=== PATIENT | male | born 1970 | race African-American/Black ===

== ENCOUNTER 2018-02-19 11:07 | Inpatient (IN) | payer OTHER ==
[2018-02-19 11:19] VITALS: BMI 27.3
--- NOTE | 2018-02-19 11:54 | HP ---
COWS - Scale Resting Pulse: 0= [place] 80 or Below Sweatin= Chills/Flushing Restless Observation: 3= Extraneous Movement Pupil Size: 1= Pupils >than Normal Bone or Joint Aches: 2= Severe Diffuse Aches Runny Nose/ Eye Tearin= Runny Nose/Eyes GI Upset > 30mins: 2= Nausea/Diarrhea Tremor Observation: 2= Slight Tremor Visible Yawning Observation: 2= >3x During Session Anxiety or Irritability: 2=Irritable/Anxious Goose Flesh Skin: 0=Smooth Skin COWS Score: 17 CIWA Score - CIWA Score Nausea/Vomitin Muscle Tremors: 3 Anxiety: 3 Agitation: 2 Paroxysmal Sweats: 1-Minimal Palms Moist Orientation: 0-Oriented Tacttile Disturbances: 1-Very Mild Itch/Numbness Auditory Disturbances: 1-Very Mild Visual Disturbances: 1-Very Mild Sensitivity Headache: 2-Mild CIWA-Ar Total Score: 16 Admission ROS BHS - HPI Chief Complaint: i need help to stop using heroin and alcohol Allergies/Adverse Reactions: Allergies Allergy/AdvReac Type Severity Reaction Status Date / Time No Known Allergies Allergy Verified 02/19/18 11:46 History of Present Illness: this 47 years old male with heroin,alcohol dependence,seeking detox,withdrawal symptom,last detox [facility] 12/02 completed insomnia nicotine dependence history of surgery of right thumb in 1993 longest period of sobriety 10 months - Ebola screening Have you traveled outside of the country in the last 21 days: No Have you had contact with anyone from an Ebola affected area: No Have you been sick,other than usual withdrawal symptoms: No Do you have a fever: No - Review of Systems Constitutional: Chills, Loss of Appetite, Malaise, Night Sweats, Changes in sleep, Weakness EENT: reports: Tearing, Nose Congestion Respiratory: reports: No Symptoms reported Cardiac: reports: No Symptoms Reported GI: reports: Diarrhea, Nausea, Abdominal cramping : reports: No Symptoms Reported Musculoskeletal: reports: Back Pain, Joint Pain, Muscle Pain, Joint Stiffness Integumentary: reports: Dryness Neuro: reports: Headache, Tremors Endocrine: reports: No Symptoms Reported Hematology: reports: No Symptoms Reported Psychiatric: reports: No Sypmtoms Reported, Judgement Intact, Mood/Affect Appropiate, Orientated x3 Patient History - Patient Medical History Hx Anemia: No Hx Asthma: No Hx Chronic Obstructive Pulmonary Disease (COPD): No Hx Cancer: No Hx Cardiac Disorders: No Hx Congestive Heart Failure: No Hx Hypertension: No Hx Hypercholesterolemia: No Hx Pacemaker: No HX Cerebrovascular Accident: No Hx Seizures: No Hx Dementia: No Hx Diabetes: No Hx Gastrointestinal Disorders: No Hx Liver Disease: No Hx Genitourinary Disorders: No Hx Sexually Transmitted Disorders: No Hx Renal Disease (ESRD): No Hx Thyroid Disease: No Hx Human Immunodeficiency Virus (HIV): No (last 2017 negative) Hx Hepatitis C: No Hx Depression: No Hx Suicide Attempt: No Hx Bipolar Disorder: No Hx Schizophrenia: No Other Medical History: no suicidal,no homicidal - Patient Surgical History Past Surgical History: Yes Hx Neurologic Surgery: No Hx Cataract Extraction: No Hx Cardiac Surgery: No Hx Lung Surgery: No Hx Breast Surgery: No Hx Breast Biopsy: No Hx Abdominal Surgery: No Hx Appendectomy: No Hx Cholecystectomy: No Hx Genitourinary Surgery: No Hx Section: No Hx Orthopedic Surgery: Yes (Fx left foot sx R thumb sx) Other Surgical History: fx left foot Anesthesia Reaction: No - PPD History Previous Implant?: Yes Documented Results: Negative w/o proof Implanted On Prior [facility] Admission?: Yes Date: 02/11/15 PPD to be Administered?: Yes - Smoking Cessation Smoking history: Current every day smoker Have you smoked in the past 12 months: Yes Aproximately how many cigarettes per day: 10 Hx Chewing Tobacco Use: No Initiated information on smoking cessation: Yes 'Breaking Loose' booklet given: 02/19/18 - Substance & Tx. History Hx Alcohol Use: Yes Hx Substance Use: Yes Substance Use Type: Alcohol, Heroin Hx Substance Use Treatment: Yes ([facility] 12/02) - Substances Abused Heroin Route: Inhalation Frequency: Daily Amount used: 6-7 BAGS Age of first use: 19 Date of Last Use: 02/18/18 Alcohol Route: Oral Frequency: Daily Amount used: 1/2 PINT OF WHISKY Age of first use: 14 Date of Last Use: 02/18/18 Family Disease History - Family Disease History Family Disease History: Diabetes: Mother (BREAST), CA: Mother, Other: Father ( ALCOHOLIC) Admission Physical Exam BHS - Vital Signs Vital Signs: Vital Signs - 24 hr 02/19/18 11:15 Temperature 97 F L Pulse Rate 55 L Respiratory 18 Rate Blood Pressure 131/79 - Physical General Appearance: Yes: Moderate Distress, Tremorous, Irritable, Sweating, Anxious HEENTM: Yes: Normal ENT Inspection, JENNIFER, Pharynx Normal Respiratory: Yes: Lungs Clear, Normal Breath Sounds, No Respiratory Distress Neck: Yes: Within Normal Limits, Supple, Trachea in good position Breast: Yes: Within Normal Limits Cardiology: Yes: Within Normal Limits, Regular Rhythm, Regular Rate, S1, S2 Abdominal: Yes: Within Normal Limits, Normal Bowel Sounds, Non Tender, Soft Genitourinary: Yes: Within Normal Limits Back: Yes: Muscle Spasm Extremities: Yes: Tremors, Other (scar of right thumb) Neurological: Yes: biological engineer II-XII NML intact, Fully Oriented, Alert, Motor Strength 5/5 Integumentary: Yes: Dry Lymphatic: Yes: Within Normal Limits - Diagnostic (1) Opioid dependence with withdrawal Current Visit: Yes Status: Acute (2) Alcohol dependence with uncomplicated withdrawal Current Visit: Yes Status: Chronic (3) Nicotine dependence Current Visit: No Status: Chronic Qualifiers: Nicotine product type: cigarettes Substance use status: uncomplicated Qualified Code(s): F17.210 - Nicotine dependence, cigarettes, uncomplicated (4) Dehydration Current Visit: Yes Status: Acute (5) Nicotine dependence Current Visit: Yes Status: Acute Qualifiers: Nicotine product type: cigarettes Cleared for Admission [facility] - Detox or Rehab [facility] Level of Care: Medically Managed Detox Regimen/Protocol: Methadone/Librium [facility] Breath Alcohol Content Breath Alcohol Content: 0 Urine Drug Screen - Results Drug Screen Negative: No Urine Drug Screen Results: OPI-Opiates, BZO-Benzodiazepines
[2018-02-19] MEDS ORDERED: MAGNESIUM CITRATE 300 ML BOTTLE PO PRN (12:02)
[2018-02-19] MEDS ORDERED: chlordiazePOXIDE HCL 25 MG CAPSULE PO PRN (12:02)
[2018-02-19] MEDS ORDERED: IBUPROFEN 400 MG TABLET (FP) PO PRN (12:02)
[2018-02-19] MEDS ORDERED: LOPERAMIDE HCL 2 MG CAPSULE PO PRN (12:02)
[2018-02-19] MEDS ORDERED: MAG HYDROX/AL HYDROX/SIMETH 30 ML UNIT-DOSE CUP PO PRN (12:02)
[2018-02-19] MEDS ORDERED: P-EPHED 60MG/TRIPROLIDI 2.5MG TABLET PO PRN (12:02)
[2018-02-19] MEDS ORDERED: ACETAMINOPHEN 325 MG TABLET (FP) PO PRN (12:02)
[2018-02-19] MEDS ORDERED: MENTHOL/PHENOL 1 EACH UD MM PRN (12:02)
[2018-02-19] MEDS ORDERED: MAGNESIUM HYDROX 2400MG/30ML ORAL SUSPENSION 30 ML CUP PO PRN (12:02)
[2018-02-19] MEDS ORDERED: guaiFENesin/D-METHORPHAN HB 10 ML UNIT-DOSE CUPS PO PRN (12:02)
[2018-02-19] MEDS ORDERED: hydrOXYzine PAMOATE 25 MG CAPSULE (FP) PO PRN (12:02)
[2018-02-19] MEDS ORDERED: METHADONE HCL 10 MG TABLET (FOR DETOX USE ONLY) PO ONE ×2 (12:30→23:00)
[2018-02-19] MEDS: NICOTINE 21 MG/24 HOURS TOPICAL PATCH TD SCH (14:44)
[2018-02-19] MEDS: chlordiazePOXIDE HCL 25 MG CAPSULE PO SCH ×2 (16:46→22:05)
[2018-02-19] MEDS: THIAMINE HCL 100 MG TABLET (FP) PO SCH (22:04)
[2018-02-19] MEDS: MELATONIN 5 MG TABLETS PO PRN (22:05)
[2018-02-20] MEDS: chlordiazePOXIDE HCL 25 MG CAPSULE PO SCH ×4 (05:17→22:16)
[2018-02-20] MEDS ORDERED: METHADONE HCL 10 MG TABLET (FOR DETOX USE ONLY) PO SCH (10:00)
[2018-02-20 10:12] LABS: HEMATOCRIT 39.9 % (35.4-49); HEMOGLOBIN 12.9 GM/dL (11.7-16.9); MCHC 32.4 g/dl (32.0-35.9); MEAN CELL VOLUME 92.5 fl (80-96); MEAN PLT VOLUME 9.7 fl (7.5-11.1); PLATELET COUNT 205 K/MM3 (134-434); RBC 4.32 M/mm3 (4.00-5.60); RDW 13.8 % (11.9-15.9); WHITE BLOOD COUNT 3.9 K/mm3 (4.0-10.0)
[2018-02-20] MEDS: PRENATAL VITAMINS W/ FOLIC ACID TABLET (FP) PO SCH (10:12)
[2018-02-20 11:10] LABS: ALBUMIN 3.7 g/dl (3.4-5.0); ALK PHOS 71 U/L (45-117); ANION GAP 5 MMOL/L (8-16); BILIRUBIN,TOTAL 0.4 mg/dL (0.2-1); BLOOD UREA NITROGEN 13 mg/dL (7-18); CALCIUM 8.8 mg/dL (8.5-10.1); CHLORIDE 106 mmol/L (98-107); CO2 31 mmol/L (21-32); CREATININE 1.1 mg/dL (0.55-1.3); GLUCOSE,RANDOM 102 mg/dL (74-106); POTASSIUM 4.2 mmol/L (3.5-5.1); SGOT/AST 26 U/L (15-37); SGPT/ALT 38 U/L (13-61); SODIUM 142 mmol/L (136-145); TOT PROT 7.2 g/dl (6.4-8.2)
[2018-02-20] MEDS: NICOTINE 21 MG/24 HOURS TOPICAL PATCH TD SCH (11:50)
--- NOTE | 2018-02-20 15:10 | PN ---
[facility] CIWA - CIWA Score Nausea/Vomitin-Mild Nausea/No Vomiting Muscle Tremors: 2 Anxiety: 2 Agitation: 2 Paroxysmal Sweats: 2 Orientation: 0-Oriented Tacttile Disturbances: 1-Very Mild Itch/Numbness Auditory Disturbances: 0-None Visual Disturbances: 0-None Headache: 1-Very Mild CIWA-Ar Total Score: 11 S COWS - Scale Resting Pulse: 0= [place] 80 or Below Sweatin= Chills/Flushing Restless Observation: 1= Difficult to Sit Still Pupil Size: 0= Normal to Room Light Bone or Joint Aches: 1= Mild Discomfort Runny Nose/ Eye Tearin= Runny Nose/Eyes GI Upset > 30mins: 2= Nausea/Diarrhea Tremor Observation of Outstretched Hands: 1= Tremor Wilsey, Not Seen Yawning Observation: 1= 1-2x During Session Anxiety or Irritability: 2=Irritable/Anxious Goose Flesh Skin: 0=Smooth Skin COWS Score: 11 [facility] Progress Note (SOAP) Subjective: fatigue, chills, interrupted sleep Objective: 02/20/18 15:09 Vital Signs Temperature 97.5 F L 02/20/18 13:34 Pulse Rate 50 L 02/20/18 13:34 Respiratory Rate 18 02/20/18 13:34 Blood Pressure 130/76 02/20/18 13:34 O2 Sat by Pulse Oximetry (%) Laboratory Last Values WBC 3.9 K/mm3 (4.0-10.0) L 02/20/18 06:00 RBC 4.32 M/mm3 (4.00-5.60) 02/20/18 06:00 Hgb 12.9 GM/dL (11.7-16.9) 02/20/18 06:00 Hct 39.9 % (35.4-49) 02/20/18 06:00 MCV 92.5 fl (80-96) 02/20/18 06:00 MCH 30.0 pg (25.7-33.7) 02/20/18 06:00 MCHC 32.4 g/dl (32.0-35.9) 02/20/18 06:00 RDW 13.8 % (11.9-15.9) 02/20/18 06:00 Plt Count 205 K/MM3 (134-434) 02/20/18 06:00 MPV 9.7 fl (7.5-11.1) 02/20/18 06:00 Sodium 142 mmol/L (136-145) 02/20/18 06:00 Potassium 4.2 mmol/L (3.5-5.1) 02/20/18 06:00 Chloride 106 mmol/L (98-107) 02/20/18 06:00 Carbon Dioxide 31 mmol/L (21-32) 02/20/18 06:00 Anion Gap 5 MMOL/L (8-16) L 02/20/18 06:00 BUN 13 mg/dL (7-18) 02/20/18 06:00 Creatinine 1.1 mg/dL (0.55-1.3) 02/20/18 06:00 Creat Clearance w eGFR > 60 (>60) 02/20/18 06:00 Random Glucose 102 mg/dL (74-106) 02/20/18 06:00 Calcium 8.8 mg/dL (8.5-10.1) 02/20/18 06:00 Total Bilirubin 0.4 mg/dL (0.2-1) 02/20/18 06:00 AST 26 U/L (15-37) 02/20/18 06:00 ALT 38 U/L (13-61) 02/20/18 06:00 Alkaline Phosphatase 71 U/L (45-117) 02/20/18 06:00 Total Protein 7.2 g/dl (6.4-8.2) 02/20/18 06:00 Albumin 3.7 g/dl (3.4-5.0) 02/20/18 06:00 RPR Titer Nonreactive (NONREACTIVE) 02/20/18 06:00 Assessment: 02/20/18 15:11 withdrawal sx Plan: continue detox increase fluids continue to monitor
--- NOTE | 2018-02-20 17:31 | EKG ---
Test Reason : Blood Pressure : / mmHG Vent. Rate : 044 BPM Atrial Rate : 044 BPM P-R Int : 144 ms QRS Dur : 086 ms QT Int : 444 ms P-R-T Axes : 042 054 033 degrees QTc Int : 379 ms MARKED SINUS BRADYCARDIA ABNORMAL ECG NO PREVIOUS ECGS AVAILABLE CLINICAL CORRELATION IS RECOMMENDED Confirmed by DONNY RAMOS, BRIGHT ([id number]) on 02/20/2018 5:30:44 PM Referred By: Confirmed By:BRIGHT HINES MD
[2018-02-20 20:46] LABS: URINE APPEARANCE CLEAR; URINE BILIRUBIN NEGATIVE (<2.0 mg/dL); URINE COLOR STRAW; URINE GLUCOSE (UA) NEGATIVE (NEGATIVE); URINE KETONE NEGATIVE (NEGATIVE); URINE LEUK ESTERASE NEGATIVE (NEGATIVE); URINE NITRITE NEGATIVE (NEGATIVE); URINE PROTEIN NEGATIVE (NEGATIVE); URINE UROBILINOGEN NEGATIVE mg/dL (0.2-1.0)
[2018-02-20] MEDS: THIAMINE HCL 100 MG TABLET (FP) PO SCH (22:15)
[2018-02-20] MEDS: MELATONIN 5 MG TABLETS PO PRN (22:16)
[2018-02-21] MEDS: chlordiazePOXIDE HCL 25 MG CAPSULE PO SCH ×2 (06:25→10:05)
[2018-02-21] MEDS: NICOTINE 21 MG/24 HOURS TOPICAL PATCH TD SCH (10:05)
[2018-02-21] MEDS: METHADONE HCL 5 MG TABLET (FOR DETOX USE ONLY) PO SCH (10:05)
[2018-02-21] MEDS: PRENATAL VITAMINS W/ FOLIC ACID TABLET (FP) PO SCH (10:05)
--- NOTE | 2018-02-21 12:35 | PN ---
S CIWA - CIWA Score Nausea/Vomitin Muscle Tremors: 2 Anxiety: 2 Agitation: 2 Paroxysmal Sweats: 2 Orientation: 0-Oriented Tacttile Disturbances: 2-Mild Itch/Numbness/Burn Auditory Disturbances: 0-None Visual Disturbances: 2-Mild Sensitivity Headache: 1-Very Mild CIWA-Ar Total Score: 15 [facility] COWS - Scale Resting Pulse: 0= [place] 80 or Below Sweatin=Flushed/Facial Moisture Restless Observation: 1= Difficult to Sit Still Pupil Size: 1= Pupils >than Normal Bone or Joint Aches: 2= Severe Diffuse Aches Runny Nose/ Eye Tearin= Nasal Congestion GI Upset > 30mins: 1= Stomach Cramp Tremor Observation of Outstretched Hands: 2= Slight Tremor Visible Yawning Observation: 0= None Anxiety or Irritability: 1=Feels Anxious/Irritable Goose Flesh Skin: 0=Smooth Skin COWS Score: 11 S Progress Note (SOAP) Subjective: Interrupted sleep, muscle aches, malaise and abdominal cramps Objective: 02/21/18 12:34 Vital Signs - 8 hr 02/21/18 02/21/18 06:40 09:24 Temperature 97.2 F L 97.5 F L Pulse Rate 43 L 51 L Respiratory 18 18 Rate Blood Pressure 100/57 L 126/83 Laboratory Last Values WBC 3.9 K/mm3 (4.0-10.0) L 02/20/18 06:00 RBC 4.32 M/mm3 (4.00-5.60) 02/20/18 06:00 Hgb 12.9 GM/dL (11.7-16.9) 02/20/18 06:00 Hct 39.9 % (35.4-49) 02/20/18 06:00 MCV 92.5 fl (80-96) 02/20/18 06:00 MCH 30.0 pg (25.7-33.7) 02/20/18 06:00 MCHC 32.4 g/dl (32.0-35.9) 02/20/18 06:00 RDW 13.8 % (11.9-15.9) 02/20/18 06:00 Plt Count 205 K/MM3 (134-434) 02/20/18 06:00 MPV 9.7 fl (7.5-11.1) 02/20/18 06:00 Sodium 142 mmol/L (136-145) 02/20/18 06:00 Potassium 4.2 mmol/L (3.5-5.1) 02/20/18 06:00 Chloride 106 mmol/L (98-107) 02/20/18 06:00 Carbon Dioxide 31 mmol/L (21-32) 02/20/18 06:00 Anion Gap 5 MMOL/L (8-16) L 02/20/18 06:00 BUN 13 mg/dL (7-18) 02/20/18 06:00 Creatinine 1.1 mg/dL (0.55-1.3) 02/20/18 06:00 Creat Clearance w eGFR > 60 (>60) 02/20/18 06:00 Random Glucose 102 mg/dL (74-106) 02/20/18 06:00 Calcium 8.8 mg/dL (8.5-10.1) 02/20/18 06:00 Total Bilirubin 0.4 mg/dL (0.2-1) 02/20/18 06:00 AST 26 U/L (15-37) 02/20/18 06:00 ALT 38 U/L (13-61) 02/20/18 06:00 Alkaline Phosphatase 71 U/L (45-117) 02/20/18 06:00 Total Protein 7.2 g/dl (6.4-8.2) 02/20/18 06:00 Albumin 3.7 g/dl (3.4-5.0) 02/20/18 06:00 Urine Color Straw 02/20/18 13:53 Urine Appearance Clear 02/20/18 13:53 Urine pH 8.0 (5.0-8.0) 02/20/18 13:53 Ur Specific [place] 1.012 (1.010-1.035) 02/20/18 13:53 Urine Protein Negative (NEGATIVE) 02/20/18 13:53 Urine Glucose (UA) Negative (NEGATIVE) 02/20/18 13:53 Urine Ketones Negative (NEGATIVE) 02/20/18 13:53 Urine Blood Negative (NEGATIVE) 02/20/18 13:53 Urine Nitrite Negative (NEGATIVE) 02/20/18 13:53 Urine Bilirubin Negative (<2.0 mg/dL) 02/20/18 13:53 Urine Urobilinogen Negative mg/dL (0.2-1.0) 02/20/18 13:53 Ur Leukocyte Esterase Negative (NEGATIVE) 02/20/18 13:53 RPR Titer Nonreactive (NONREACTIVE) 02/20/18 06:00 Labs noted Assessment: 02/21/18 12:35 Withdrawal sx Plan: Continue detox
[2018-02-21] MEDS: chlordiazePOXIDE 5 MG CAPSULE PO SCH ×2 (18:04→22:20)
[2018-02-21] MEDS: THIAMINE HCL 100 MG TABLET (FP) PO SCH (22:20)
[2018-02-21] MEDS: MELATONIN 5 MG TABLETS PO PRN (22:21)
[2018-02-22] MEDS: chlordiazePOXIDE 5 MG CAPSULE PO SCH ×2 (05:34→10:10)
[2018-02-22] MEDS: PRENATAL VITAMINS W/ FOLIC ACID TABLET (FP) PO SCH (10:10)
[2018-02-22] MEDS: METHADONE HCL 5 MG TABLET (FOR DETOX USE ONLY) PO SCH (10:10)
[2018-02-22] MEDS: NICOTINE 21 MG/24 HOURS TOPICAL PATCH TD SCH (10:10)
--- NOTE | 2018-02-22 16:45 | PN ---
[facility] Progress Note (SOAP) Subjective: tearing yawning generalized body soreness Objective: 02/22/18 16:44 A & Ox x 3 met in [address] chatting with another patient comfortably Vital Signs Temperature 97.9 F 02/22/18 13:09 Pulse Rate 48 L 02/22/18 13:09 Respiratory Rate 18 02/22/18 13:09 Blood Pressure 127/71 02/22/18 13:09 O2 Sat by Pulse Oximetry (%) Assessment: 02/22/18 16:44 withdrawal sx Plan: continue detox
[2018-02-22] MEDS: chlordiazePOXIDE HCL 10 MG CAPSULE PO SCH ×2 (17:27→22:15)
[2018-02-22] MEDS: THIAMINE HCL 100 MG TABLET (FP) PO SCH (22:15)
[2018-02-22] MEDS: MELATONIN 5 MG TABLETS PO PRN (22:16)
[2018-02-23] MEDS: chlordiazePOXIDE HCL 10 MG CAPSULE PO SCH ×3 (06:15→10:07)
[2018-02-23] MEDS ORDERED: METHADONE HCL 10 MG TABLET (FOR DETOX USE ONLY) PO SCH (10:00)
[2018-02-23] MEDS: PRENATAL VITAMINS W/ FOLIC ACID TABLET (FP) PO SCH (10:06)
[2018-02-23] MEDS: NICOTINE 21 MG/24 HOURS TOPICAL PATCH TD SCH (10:06)
--- NOTE | 2018-02-23 12:40 | PN ---
[facility] Progress Note (SOAP) Subjective: Teary eyes, yawning, interrupted sleep Objective: 02/23/18 12:39 Last Vital Signs Temp Pulse Resp BP Pulse Ox 96.9 F L 60 18 119/84 02/23/18 09:20 02/23/18 09:20 02/23/18 09:20 02/23/18 09:20 Laboratory Tests 02/20/18 02/20/18 02/20/18 06:00 06:00 06:00 WBC 3.9 L RBC 4.32 Hgb 12.9 Hct 39.9 MCV 92.5 MCH 30.0 MCHC 32.4 RDW 13.8 Plt Count 205 MPV 9.7 Sodium 142 Potassium 4.2 Chloride 106 Carbon Dioxide 31 Anion Gap 5 L BUN 13 Creatinine 1.1 Creat Clearance w eGFR > 60 Random Glucose 102 Calcium 8.8 Total Bilirubin 0.4 AST 26 ALT 38 Alkaline Phosphatase 71 Total Protein 7.2 Albumin 3.7 Urine Color Urine Appearance Urine pH Ur Specific [place] Urine Protein Urine Glucose (UA) Urine Ketones Urine Blood Urine Nitrite Urine Bilirubin Urine Urobilinogen Ur Leukocyte Esterase RPR Titer Nonreactive 02/20/18 13:53 WBC RBC Hgb Hct MCV MCH MCHC RDW Plt Count MPV Sodium Potassium Chloride Carbon Dioxide Anion Gap BUN Creatinine Creat Clearance w eGFR Random Glucose Calcium Total Bilirubin AST ALT Alkaline Phosphatase Total Protein Albumin Urine Color Straw Urine Appearance Clear Urine pH 8.0 Ur Specific [place] 1.012 Urine Protein Negative Urine Glucose (UA) Negative Urine Ketones Negative Urine Blood Negative Urine Nitrite Negative Urine Bilirubin Negative Urine Urobilinogen Negative Ur Leukocyte Esterase Negative RPR Titer Labs reviewed Assessment: 02/23/18 12:39 Withdrawal sxs Plan: Continue detox Encouraged PO water hydration
[2018-02-23] MEDS: THIAMINE HCL 100 MG TABLET (FP) PO SCH (22:14)
[2018-02-23] MEDS: MELATONIN 5 MG TABLETS PO PRN (22:14)
[2018-02-24] MEDS ORDERED: METHADONE HCL 5 MG TABLET (FOR DETOX USE ONLY) PO SCH (06:00)
[2018-02-24 06:40] VITALS: BP 101/56; PULSE 50; TEMP 96.9
--- NOTE | 2018-02-24 15:04 | DS ---
[facility] Detox Discharge Summary Admission Date: 02/19/18 Discharge Date: 02/24/18 - History Present History: Alcohol Dependence, Opioid Dependence Pertinent Past History: Denies - Physical Exam Results Vital Signs: Vital Signs Temperature 96.9 F L 02/24/18 06:39 Pulse Rate 50 L 02/24/18 06:39 Respiratory Rate 18 02/24/18 06:39 Blood Pressure 101/56 L 02/24/18 06:39 O2 Sat by Pulse Oximetry (%) Pertinent Admission Physical Exam Findings: Withdrawal sxs Laboratory Tests 02/20/18 02/20/18 02/20/18 06:00 06:00 06:00 WBC 3.9 L RBC 4.32 Hgb 12.9 Hct 39.9 MCV 92.5 MCH 30.0 MCHC 32.4 RDW 13.8 Plt Count 205 MPV 9.7 Sodium 142 Potassium 4.2 Chloride 106 Carbon Dioxide 31 Anion Gap 5 L BUN 13 Creatinine 1.1 Creat Clearance w eGFR > 60 Random Glucose 102 Calcium 8.8 Total Bilirubin 0.4 AST 26 ALT 38 Alkaline Phosphatase 71 Total Protein 7.2 Albumin 3.7 Urine Color Urine Appearance Urine pH Ur Specific [place] Urine Protein Urine Glucose (UA) Urine Ketones Urine Blood Urine Nitrite Urine Bilirubin Urine Urobilinogen Ur Leukocyte Esterase RPR Titer Nonreactive 02/20/18 13:53 WBC RBC Hgb Hct MCV MCH MCHC RDW Plt Count MPV Sodium Potassium Chloride Carbon Dioxide Anion Gap BUN Creatinine Creat Clearance w eGFR Random Glucose Calcium Total Bilirubin AST ALT Alkaline Phosphatase Total Protein Albumin Urine Color Straw Urine Appearance Clear Urine pH 8.0 Ur Specific [place] 1.012 Urine Protein Negative Urine Glucose (UA) Negative Urine Ketones Negative Urine Blood Negative Urine Nitrite Negative Urine Bilirubin Negative Urine Urobilinogen Negative Ur Leukocyte Esterase Negative RPR Titer Labs reviewed - Treatment Hospital Course: Detox Protocol Followed, Detoxed Safely, Responded well, Discharged Condition Good - Medication Discharge Medications: Ambulatory Orders NK [No Known Home Medication] 02/09/15 - Diagnosis (1) Nicotine dependence Status: Chronic Qualifiers: Nicotine product type: cigarettes Substance use status: uncomplicated Qualified Code(s): F17.210 - Nicotine dependence, cigarettes, uncomplicated (2) Opioid dependence with withdrawal Status: Acute (3) Alcohol dependence with uncomplicated withdrawal Status: Acute (4) Substance-induced sleep disorder Status: Acute (5) Substance induced mood disorder Status: Acute - AMA Did Patient Leave Against Medical Advice: No (F/U with your PCP within 1-2 weeks )
== END 2018-02-24 08:35 | disposition home or self-care (01) | DRG 773 ==
LOC: YASAS 11:07 → Y3N 12:20
PROC: HZ2ZZZZ Detoxification Services for Substance Abuse Treatment (ICD-10-PCS; principal; 2018-02-19)
DX: F11.23 Opioid dependence with withdrawal (principal); F10.230 Alcohol dependence with withdrawal, uncomplicated; F14.20 Cocaine dependence, uncomplicated; F17.210 Nicotine dependence, cigarettes, uncomplicated; F19.24 Other psychoactive substance dependence with psychoactive substance-induced mood disorder; F19.282 Other psychoactive substance dependence with psychoactive substance-induced sleep disorder; E86.0 Dehydration
CPT/HCPCS: 36415; 80053; 81003; 85027; 86593; 93005; 93010

== ENCOUNTER 2019-09-30 12:51 | Inpatient (IN) | payer OTHER ==
[2019-09-30] MEDS ORDERED: IBUPROFEN 400 MG TABLET (FP) PO PRN (13:00)
[2019-09-30] MEDS ORDERED: MAGNESIUM HYDROX 2400MG/30ML ORAL SUSPENSION 30 ML CUP PO PRN (13:00)
[2019-09-30] MEDS ORDERED: LOPERAMIDE HCL 2 MG CAPSULE PO PRN (13:00)
[2019-09-30] MEDS ORDERED: MAGNESIUM CITRATE 300 ML BOTTLE PO PRN (13:00)
[2019-09-30] MEDS ORDERED: P-EPHED 60MG/TRIPROLIDI 2.5MG TABLET PO PRN (13:00)
[2019-09-30] MEDS ORDERED: MAG HYDROX/AL HYDROX/SIMETH 30 ML UNIT-DOSE CUP PO PRN (13:00)
[2019-09-30] MEDS ORDERED: ACETAMINOPHEN 325 MG TABLET (FP) PO PRN (13:00)
[2019-09-30] MEDS ORDERED: guaiFENesin 200 MG/10 ML 10 ML UNIT-DOSE CUPS PO PRN (13:00)
[2019-09-30] MEDS ORDERED: NICOTINE POLACRILEX 2 MG GUM BUC PRN (13:00)
[2019-09-30] MEDS ORDERED: MENTHOL/PHENOL 1 EACH UD MM PRN (13:00)
[2019-09-30] MEDS: hydrOXYzine PAMOATE 25 MG CAPSULE (FP) PO SCH ×3 (14:41→21:24)
[2019-09-30] MEDS: THIAMINE HCL 100 MG TABLET (FP) PO SCH (21:24)
[2019-09-30] MEDS: MELATONIN 5 MG TABLETS PO SCH (21:24)
[2019-10-01] MEDS: hydrOXYzine PAMOATE 25 MG CAPSULE (FP) PO SCH ×5 (06:49→21:31)
[2019-10-01] MEDS: PRENATAL VITAMINS W/ FOLIC ACID TABLET (FP) PO SCH (09:50)
[2019-10-01] MEDS: NICOTINE 7 MG/24 HOURS TOPICAL PATCH TD SCH (14:00)
[2019-10-01] MEDS: MELATONIN 5 MG TABLETS PO SCH (21:31)
[2019-10-01] MEDS: THIAMINE HCL 100 MG TABLET (FP) PO SCH (21:31)
[2019-10-02] MEDS: hydrOXYzine PAMOATE 25 MG CAPSULE (FP) PO SCH ×5 (07:37→21:41)
[2019-10-02] MEDS: NICOTINE 7 MG/24 HOURS TOPICAL PATCH TD SCH (09:27)
[2019-10-02] MEDS: PRENATAL VITAMINS W/ FOLIC ACID TABLET (FP) PO SCH (09:27)
[2019-10-02] MEDS: THIAMINE HCL 100 MG TABLET (FP) PO SCH (21:41)
[2019-10-02] MEDS: MELATONIN 5 MG TABLETS PO SCH (21:41)
[2019-10-03] MEDS: hydrOXYzine PAMOATE 25 MG CAPSULE (FP) PO SCH ×5 (06:49→21:25)
[2019-10-03] MEDS: PRENATAL VITAMINS W/ FOLIC ACID TABLET (FP) PO SCH (09:55)
[2019-10-03] MEDS: NICOTINE 7 MG/24 HOURS TOPICAL PATCH TD SCH (09:55)
[2019-10-03] MEDS: BUPRENORPHINE/NALOXONE 4 MG/1 MG FILM PACKET SL SCH ×2 (14:17→21:24)
[2019-10-03] MEDS: MELATONIN 5 MG TABLETS PO SCH (21:24)
[2019-10-03] MEDS: THIAMINE HCL 100 MG TABLET (FP) PO SCH (21:24)
[2019-10-04] MEDS: hydrOXYzine PAMOATE 25 MG CAPSULE (FP) PO SCH ×5 (06:30→21:03)
[2019-10-04] MEDS: BUPRENORPHINE/NALOXONE 4 MG/1 MG FILM PACKET SL SCH ×2 (09:55→21:02)
[2019-10-04] MEDS: PRENATAL VITAMINS W/ FOLIC ACID TABLET (FP) PO SCH (09:55)
[2019-10-04] MEDS: NICOTINE 7 MG/24 HOURS TOPICAL PATCH TD SCH (09:55)
[2019-10-04] MEDS: MELATONIN 5 MG TABLETS PO SCH (21:02)
[2019-10-04] MEDS: THIAMINE HCL 100 MG TABLET (FP) PO SCH (21:02)
[2019-10-05] MEDS: hydrOXYzine PAMOATE 25 MG CAPSULE (FP) PO SCH ×5 (06:58→21:46)
[2019-10-05] MEDS: PRENATAL VITAMINS W/ FOLIC ACID TABLET (FP) PO SCH (09:59)
[2019-10-05] MEDS: BUPRENORPHINE/NALOXONE 4 MG/1 MG FILM PACKET SL SCH ×2 (09:59→21:48)
[2019-10-05] MEDS: NICOTINE 7 MG/24 HOURS TOPICAL PATCH TD SCH (10:00)
[2019-10-05] MEDS: THIAMINE HCL 100 MG TABLET (FP) PO SCH (21:46)
[2019-10-05] MEDS: MELATONIN 5 MG TABLETS PO SCH (21:46)
[2019-10-06] MEDS: hydrOXYzine PAMOATE 25 MG CAPSULE (FP) PO SCH (06:44)
[2019-10-06] MEDS: NICOTINE 7 MG/24 HOURS TOPICAL PATCH TD SCH (09:49)
[2019-10-06] MEDS: PRENATAL VITAMINS W/ FOLIC ACID TABLET (FP) PO SCH (09:49)
[2019-10-06] MEDS: hydrOXYzine PAMOATE 25 MG CAPSULE (FP) PO PRN ×3 (09:49→21:19)
[2019-10-06] MEDS: BUPRENORPHINE/NALOXONE 4 MG/1 MG FILM PACKET SL SCH ×2 (09:50→21:18)
[2019-10-06] MEDS: MELATONIN 5 MG TABLETS PO SCH (21:18)
[2019-10-06] MEDS: THIAMINE HCL 100 MG TABLET (FP) PO SCH (21:18)
[2019-10-07] MEDS: BUPRENORPHINE/NALOXONE 4 MG/1 MG FILM PACKET SL SCH ×2 (09:38→21:23)
[2019-10-07] MEDS: PRENATAL VITAMINS W/ FOLIC ACID TABLET (FP) PO SCH (09:38)
[2019-10-07] MEDS: NICOTINE 7 MG/24 HOURS TOPICAL PATCH TD SCH (09:38)
[2019-10-07] MEDS: hydrOXYzine PAMOATE 25 MG CAPSULE (FP) PO PRN ×3 (09:39→21:22)
[2019-10-07] MEDS: MELATONIN 5 MG TABLETS PO SCH (21:22)
[2019-10-07] MEDS: THIAMINE HCL 100 MG TABLET (FP) PO SCH (21:22)
[2019-10-08] MEDS: NICOTINE 7 MG/24 HOURS TOPICAL PATCH TD SCH (09:48)
[2019-10-08] MEDS: BUPRENORPHINE/NALOXONE 4 MG/1 MG FILM PACKET SL SCH ×2 (09:48→21:24)
[2019-10-08] MEDS: PRENATAL VITAMINS W/ FOLIC ACID TABLET (FP) PO SCH (09:48)
[2019-10-08] MEDS: hydrOXYzine PAMOATE 25 MG CAPSULE (FP) PO PRN ×3 (09:48→21:25)
[2019-10-08] MEDS: THIAMINE HCL 100 MG TABLET (FP) PO SCH (21:24)
[2019-10-08] MEDS: MELATONIN 5 MG TABLETS PO SCH (21:24)
[2019-10-09] MEDS: PRENATAL VITAMINS W/ FOLIC ACID TABLET (FP) PO SCH (09:26)
[2019-10-09] MEDS: NICOTINE 7 MG/24 HOURS TOPICAL PATCH TD SCH (09:26)
[2019-10-09] MEDS: BUPRENORPHINE/NALOXONE 4 MG/1 MG FILM PACKET SL SCH ×2 (09:26→21:17)
[2019-10-09] MEDS: hydrOXYzine PAMOATE 25 MG CAPSULE (FP) PO PRN ×3 (09:26→21:17)
[2019-10-09] MEDS: MELATONIN 5 MG TABLETS PO SCH (21:17)
[2019-10-09] MEDS: THIAMINE HCL 100 MG TABLET (FP) PO SCH (21:17)
[2019-10-10] MEDS: BUPRENORPHINE/NALOXONE 4 MG/1 MG FILM PACKET SL SCH (09:55)
[2019-10-10] MEDS: hydrOXYzine PAMOATE 25 MG CAPSULE (FP) PO PRN ×2 (09:55→21:49)
[2019-10-10] MEDS: PRENATAL VITAMINS W/ FOLIC ACID TABLET (FP) PO SCH (09:55)
[2019-10-10] MEDS: NICOTINE 7 MG/24 HOURS TOPICAL PATCH TD SCH (09:55)
[2019-10-10] MEDS: THIAMINE HCL 100 MG TABLET (FP) PO SCH (21:49)
[2019-10-10] MEDS: MELATONIN 5 MG TABLETS PO SCH (21:49)
[2019-10-11] MEDS: BUPRENORPHINE/NALOXONE 4 MG/1 MG FILM PACKET SL SCH ×2 (10:03→21:46)
[2019-10-11] MEDS: PRENATAL VITAMINS W/ FOLIC ACID TABLET (FP) PO SCH (10:03)
[2019-10-11] MEDS: hydrOXYzine PAMOATE 25 MG CAPSULE (FP) PO PRN ×2 (10:03→21:45)
[2019-10-11] MEDS: NICOTINE 7 MG/24 HOURS TOPICAL PATCH TD SCH (10:04)
[2019-10-11] MEDS: MELATONIN 5 MG TABLETS PO SCH (21:46)
[2019-10-11] MEDS: THIAMINE HCL 100 MG TABLET (FP) PO SCH (22:07)
[2019-10-12] MEDS: BUPRENORPHINE/NALOXONE 4 MG/1 MG FILM PACKET SL SCH ×2 (10:02→21:29)
[2019-10-12] MEDS: hydrOXYzine PAMOATE 25 MG CAPSULE (FP) PO PRN ×3 (10:02→21:29)
[2019-10-12] MEDS: PRENATAL VITAMINS W/ FOLIC ACID TABLET (FP) PO SCH (10:02)
[2019-10-12] MEDS: NICOTINE 7 MG/24 HOURS TOPICAL PATCH TD SCH (10:03)
[2019-10-12] MEDS: COLLOIDAL OATMEAL 1 BAR EACH TP PRN (14:22)
[2019-10-12] MEDS: MELATONIN 5 MG TABLETS PO SCH (21:29)
[2019-10-12] MEDS: THIAMINE HCL 100 MG TABLET (FP) PO SCH (21:29)
[2019-10-13] MEDS: NICOTINE 7 MG/24 HOURS TOPICAL PATCH TD SCH (09:07)
[2019-10-13] MEDS: hydrOXYzine PAMOATE 25 MG CAPSULE (FP) PO PRN ×2 (09:08→21:29)
[2019-10-13] MEDS: PRENATAL VITAMINS W/ FOLIC ACID TABLET (FP) PO SCH (09:08)
[2019-10-13] MEDS: BUPRENORPHINE/NALOXONE 4 MG/1 MG FILM PACKET SL SCH ×2 (09:09→21:29)
[2019-10-13] MEDS: THIAMINE HCL 100 MG TABLET (FP) PO SCH (21:29)
[2019-10-13] MEDS: MELATONIN 5 MG TABLETS PO SCH (21:29)
[2019-10-14] MEDS: NICOTINE 7 MG/24 HOURS TOPICAL PATCH TD SCH (10:05)
[2019-10-14] MEDS: PRENATAL VITAMINS W/ FOLIC ACID TABLET (FP) PO SCH (10:05)
[2019-10-14] MEDS: BUPRENORPHINE/NALOXONE 4 MG/1 MG FILM PACKET SL SCH ×2 (10:06→21:39)
[2019-10-14] MEDS: hydrOXYzine PAMOATE 25 MG CAPSULE (FP) PO PRN ×3 (10:07→21:39)
[2019-10-14] MEDS: THIAMINE HCL 100 MG TABLET (FP) PO SCH (21:39)
[2019-10-14] MEDS: MELATONIN 5 MG TABLETS PO SCH (21:39)
[2019-10-15] MEDS: PRENATAL VITAMINS W/ FOLIC ACID TABLET (FP) PO SCH (09:56)
[2019-10-15] MEDS: NICOTINE 7 MG/24 HOURS TOPICAL PATCH TD SCH (09:56)
[2019-10-15] MEDS: hydrOXYzine PAMOATE 25 MG CAPSULE (FP) PO PRN ×3 (09:57→21:35)
[2019-10-15] MEDS: BUPRENORPHINE/NALOXONE 4 MG/1 MG FILM PACKET SL SCH ×2 (09:57→21:35)
[2019-10-15] MEDS: MELATONIN 5 MG TABLETS PO SCH (21:35)
[2019-10-15] MEDS: THIAMINE HCL 100 MG TABLET (FP) PO SCH (21:35)
[2019-10-16] MEDS: BUPRENORPHINE/NALOXONE 4 MG/1 MG FILM PACKET SL SCH ×2 (09:50→21:30)
[2019-10-16] MEDS: PRENATAL VITAMINS W/ FOLIC ACID TABLET (FP) PO SCH (09:50)
[2019-10-16] MEDS: hydrOXYzine PAMOATE 25 MG CAPSULE (FP) PO PRN ×2 (09:50→19:27)
[2019-10-16] MEDS: NICOTINE 7 MG/24 HOURS TOPICAL PATCH TD SCH (09:51)
[2019-10-16] MEDS: MELATONIN 5 MG TABLETS PO SCH (21:30)
[2019-10-16] MEDS: THIAMINE HCL 100 MG TABLET (FP) PO SCH (21:30)
[2019-10-17] MEDS: PRENATAL VITAMINS W/ FOLIC ACID TABLET (FP) PO SCH (10:19)
[2019-10-17] MEDS: hydrOXYzine PAMOATE 25 MG CAPSULE (FP) PO PRN ×3 (10:19→21:32)
[2019-10-17] MEDS: BUPRENORPHINE/NALOXONE 4 MG/1 MG FILM PACKET SL SCH ×2 (10:19→21:33)
[2019-10-17] MEDS: NICOTINE 7 MG/24 HOURS TOPICAL PATCH TD SCH (10:20)
[2019-10-17] MEDS: THIAMINE HCL 100 MG TABLET (FP) PO SCH (21:32)
[2019-10-17] MEDS: MELATONIN 5 MG TABLETS PO SCH (21:32)
[2019-10-17] MEDS: TOLNAFTATE 1% CREAM 15 GM TUBE TP SCH (21:46)
[2019-10-18] MEDS ORDERED: BUPRENORPHINE/NALOXONE 4 MG/1 MG FILM PACKET SL SCH (10:00)
[2019-10-18] MEDS: NICOTINE 7 MG/24 HOURS TOPICAL PATCH TD SCH (10:21)
[2019-10-18] MEDS: PRENATAL VITAMINS W/ FOLIC ACID TABLET (FP) PO SCH (10:22)
[2019-10-18] MEDS: TOLNAFTATE 1% CREAM 15 GM TUBE TP SCH ×2 (10:22→21:42)
[2019-10-18] MEDS: BUPRENORPHINE/NALOXONE 4 MG/1 MG FILM PACKET SL SCH ×2 (10:22→17:54)
[2019-10-18] MEDS: hydrOXYzine PAMOATE 25 MG CAPSULE (FP) PO PRN ×3 (10:23→21:42)
[2019-10-18] MEDS: THIAMINE HCL 100 MG TABLET (FP) PO SCH (21:42)
[2019-10-18] MEDS: MELATONIN 5 MG TABLETS PO SCH (21:42)
[2019-10-19] MEDS: BUPRENORPHINE/NALOXONE 4 MG/1 MG FILM PACKET SL SCH ×2 (06:54→17:57)
[2019-10-19] MEDS: PRENATAL VITAMINS W/ FOLIC ACID TABLET (FP) PO SCH (09:18)
[2019-10-19] MEDS: TOLNAFTATE 1% CREAM 15 GM TUBE TP SCH ×2 (09:18→21:28)
[2019-10-19] MEDS: NICOTINE 7 MG/24 HOURS TOPICAL PATCH TD SCH (09:18)
[2019-10-19] MEDS: hydrOXYzine PAMOATE 25 MG CAPSULE (FP) PO PRN ×2 (09:19→21:28)
[2019-10-19] MEDS: MELATONIN 5 MG TABLETS PO SCH (21:28)
[2019-10-19] MEDS: THIAMINE HCL 100 MG TABLET (FP) PO SCH (21:29)
[2019-10-20] MEDS: BUPRENORPHINE/NALOXONE 4 MG/1 MG FILM PACKET SL SCH ×2 (06:29→17:37)
[2019-10-20] MEDS: NICOTINE 7 MG/24 HOURS TOPICAL PATCH TD SCH (09:33)
[2019-10-20] MEDS: PRENATAL VITAMINS W/ FOLIC ACID TABLET (FP) PO SCH (09:33)
[2019-10-20] MEDS: TOLNAFTATE 1% CREAM 15 GM TUBE TP SCH ×2 (09:34→21:30)
[2019-10-20] MEDS: hydrOXYzine PAMOATE 25 MG CAPSULE (FP) PO PRN ×2 (09:34→21:31)
[2019-10-20] MEDS: THIAMINE HCL 100 MG TABLET (FP) PO SCH (21:31)
[2019-10-20] MEDS: MELATONIN 5 MG TABLETS PO SCH (21:31)
[2019-10-21] MEDS: BUPRENORPHINE/NALOXONE 4 MG/1 MG FILM PACKET SL SCH ×2 (06:26→19:08)
[2019-10-21] MEDS: NICOTINE 7 MG/24 HOURS TOPICAL PATCH TD SCH (09:55)
[2019-10-21] MEDS: hydrOXYzine PAMOATE 25 MG CAPSULE (FP) PO PRN ×2 (09:55→21:25)
[2019-10-21] MEDS: PRENATAL VITAMINS W/ FOLIC ACID TABLET (FP) PO SCH (09:55)
[2019-10-21] MEDS: TOLNAFTATE 1% CREAM 15 GM TUBE TP SCH ×2 (09:56→21:25)
[2019-10-21] MEDS: THIAMINE HCL 100 MG TABLET (FP) PO SCH (21:25)
[2019-10-21] MEDS: MELATONIN 5 MG TABLETS PO SCH (21:25)
[2019-10-22] MEDS: BUPRENORPHINE/NALOXONE 4 MG/1 MG FILM PACKET SL SCH ×2 (06:30→18:00)
[2019-10-22] MEDS: PRENATAL VITAMINS W/ FOLIC ACID TABLET (FP) PO SCH (09:46)
[2019-10-22] MEDS: NICOTINE 7 MG/24 HOURS TOPICAL PATCH TD SCH (09:46)
[2019-10-22] MEDS: hydrOXYzine PAMOATE 25 MG CAPSULE (FP) PO PRN ×2 (09:48→21:20)
[2019-10-22] MEDS: TOLNAFTATE 1% CREAM 15 GM TUBE TP SCH ×2 (09:48→21:19)
[2019-10-22] MEDS: MELATONIN 5 MG TABLETS PO SCH (21:18)
[2019-10-22] MEDS: THIAMINE HCL 100 MG TABLET (FP) PO SCH (21:18)
[2019-10-23] MEDS: BUPRENORPHINE/NALOXONE 4 MG/1 MG FILM PACKET SL SCH ×2 (06:22→17:24)
[2019-10-23] MEDS: hydrOXYzine PAMOATE 25 MG CAPSULE (FP) PO PRN ×3 (06:24→21:25)
[2019-10-23] MEDS: NICOTINE 7 MG/24 HOURS TOPICAL PATCH TD SCH (09:18)
[2019-10-23] MEDS: PRENATAL VITAMINS W/ FOLIC ACID TABLET (FP) PO SCH (09:18)
[2019-10-23] MEDS: TOLNAFTATE 1% CREAM 15 GM TUBE TP SCH ×2 (09:18→21:24)
[2019-10-23] MEDS: MELATONIN 5 MG TABLETS PO SCH (21:24)
[2019-10-23] MEDS: THIAMINE HCL 100 MG TABLET (FP) PO SCH (21:24)
[2019-10-24] MEDS: BUPRENORPHINE/NALOXONE 4 MG/1 MG FILM PACKET SL SCH (06:08)
[2019-10-24] MEDS: hydrOXYzine PAMOATE 25 MG CAPSULE (FP) PO PRN ×3 (06:08→21:20)
[2019-10-24] MEDS: NICOTINE 7 MG/24 HOURS TOPICAL PATCH TD SCH (10:01)
[2019-10-24] MEDS: PRENATAL VITAMINS W/ FOLIC ACID TABLET (FP) PO SCH (10:02)
[2019-10-24] MEDS: TOLNAFTATE 1% CREAM 15 GM TUBE TP SCH ×2 (10:02→21:20)
[2019-10-24] MEDS ORDERED: BUPRENORPHINE/NALOXONE 4 MG/1 MG FILM PACKET SL SCH (18:00)
[2019-10-24] MEDS: MELATONIN 5 MG TABLETS PO SCH (21:20)
[2019-10-24] MEDS: THIAMINE HCL 100 MG TABLET (FP) PO SCH (21:20)
[2019-10-25] MEDS: BUPRENORPHINE/NALOXONE 4 MG/1 MG FILM PACKET SL SCH ×2 (07:04→17:55)
[2019-10-25] MEDS: hydrOXYzine PAMOATE 25 MG CAPSULE (FP) PO PRN ×3 (07:05→21:34)
[2019-10-25] MEDS: COLLOIDAL OATMEAL 1 BAR EACH TP PRN ×2 (10:21→21:34)
[2019-10-25] MEDS: TOLNAFTATE 1% CREAM 15 GM TUBE TP SCH ×2 (10:22→21:34)
[2019-10-25] MEDS: PRENATAL VITAMINS W/ FOLIC ACID TABLET (FP) PO SCH (10:22)
[2019-10-25] MEDS: NICOTINE 7 MG/24 HOURS TOPICAL PATCH TD SCH (10:22)
[2019-10-25] MEDS: THIAMINE HCL 100 MG TABLET (FP) PO SCH (21:34)
[2019-10-25] MEDS: MELATONIN 5 MG TABLETS PO SCH (21:34)
[2019-10-26] MEDS: hydrOXYzine PAMOATE 25 MG CAPSULE (FP) PO PRN ×3 (06:36→18:14)
[2019-10-26] MEDS: BUPRENORPHINE/NALOXONE 4 MG/1 MG FILM PACKET SL SCH ×2 (06:36→18:13)
[2019-10-26 07:00] VITALS: PULSE 62
[2019-10-26] MEDS: NICOTINE 7 MG/24 HOURS TOPICAL PATCH TD SCH (10:00)
[2019-10-26] MEDS: PRENATAL VITAMINS W/ FOLIC ACID TABLET (FP) PO SCH (10:00)
[2019-10-26] MEDS: TOLNAFTATE 1% CREAM 15 GM TUBE TP SCH ×2 (10:48→21:42)
[2019-10-26] MEDS: THIAMINE HCL 100 MG TABLET (FP) PO SCH (21:41)
[2019-10-26] MEDS: MELATONIN 5 MG TABLETS PO SCH (21:41)
[2019-10-27] MEDS: hydrOXYzine PAMOATE 25 MG CAPSULE (FP) PO PRN (06:28)
[2019-10-27] MEDS: BUPRENORPHINE/NALOXONE 4 MG/1 MG FILM PACKET SL SCH (06:28)
[2019-10-27 06:39] VITALS: BP 124/88; TEMP 97.8
== END 2019-10-27 09:45 | disposition home or self-care (01) | DRG 772 ==
LOC: YASAS 12:51 → Y5N 12:55
PROVIDERS: ADMIT Allergy & Immunology; ATTEND Allergy & Immunology
PROC: HZ42ZZZ Group Counseling for Substance Abuse Treatment, Cognitive-Behavioral (ICD-10-PCS; principal; 2019-09-30)
DX: F11.20 Opioid dependence, uncomplicated (principal); F14.20 Cocaine dependence, uncomplicated; F17.210 Nicotine dependence, cigarettes, uncomplicated; B35.3 Tinea pedis; L98.8 Other specified disorders of the skin and subcutaneous tissue; Z51.81 Encounter for therapeutic drug level monitoring; Z79.899 Other long term (current) drug therapy; Z59.0 Homelessness